=== PATIENT | male | born 1990 | race Two or more races ===

== ENCOUNTER 2017-07-11 10:58 | Emergency (ER) | payer SELFPAY ==
[~2017-07-11] VITALS: Ht 182.9 cm; Wt 115.2 kg
[2017-07-11 11:59] LABS: Basophils # (auto) 0 uL; Basophils % (auto) 0.4 % (0.0-2.0); Eosinophils # (auto) 0.1 uL; Eosinophils % (auto) 2.1 % (0.0-7.0); Hematocrit 48.1 % (41.0-53.0); Hemoglobin 15.6 g/dL (13.5-17.5); Lymphocytes # (auto) 3.1 uL; Lymphocytes % (auto) 44.3 % (10.0-50.0); Mean Corpuscular Hemoglobin 31.3 pg (28.0-32.0); Mean Corpuscular Hgb Conc. 32.4 g/dL (32.0-36.0); Mean Corpuscular Volume 96.6 fL (80.0-100.0); Monocytes # (auto) 0.5 uL; Monocytes % (auto) 7.7 % (0.0-12.0); Neutrophils # (auto) 3.2 uL; Neutrophils % (auto) 45.5 % (37.0-80.0); Nucleated Red Blood Cells % 0.2 %; Platelet Count (auto) 300 10^3/uL (140-450); Red Blood Cells 4.98 10^6/uL (4.5-5.90); Red Cell Distribution Width 13.9 % (11.8-14.3)
[2017-07-11 12:22] LABS: Alanine Aminotransferase 44 U/L (16-61); Albumin 3.8 g/dL (3.4-5.0); Alkaline Phosphatase 75 U/L (45-117); Anion Gap 6 (5-15); Aspartate Aminotransferase 17 U/L (15-37); BUN/Creatinine Ratio 14.9; Bilirubin, Total 0.4 mg/dL (0.2-1.0); Blood Urea Nitrogen 13 mg/dL (7-18); Calcium 8.6 mg/dL (8.5-10.1); Carbon Dioxide 27 mmol/L (21-32); Chloride 108 mmol/L (98-107); GFR African American 134 mL/min; GFR Non-African American 111 mL/min; Glucose 85 mg/dL (74-106); Sodium 141 mmol/L (136-145); Total Protein 7.2 g/dL (6.4-8.2)
[2017-07-11 14:21] LABS: Urine Amorphous Crystal FEW /hpf (None Seen); Urine Bacteria NONE SEEN /hpf (None Seen); Urine Blood Negative /uL (Negative); Urine Specific Gravity 1.024 (1.001-1.035); Urine WBC 1 /hpf (0 - 3)
[2017-07-11 14:27] VITALS: BP 125/83
[2017-07-11 14:31] LABS: Alcohol, Urine < 3.0 mg/dL (0-5); Amphetamine Screen, Urine NEGATIVE (NEGATIVE); Barbiturate Scree,Urine NEGATIVE (NEGATIVE); Benzodiazephine Screen, Urine NEGATIVE (NEGATIVE); Cannabinoid Screen, Urine POSITIVE (NEGATIVE); Cocaine Screen, Urine NEGATIVE (NEGATIVE); Opiate Scree,Urine NEGATIVE (NEGATIVE); Phencyclidine Screen, Urine NEGATIVE (NEGATIVE)
== END 2017-07-11 15:37 | disposition home or self-care (01) ==
LOC: ER 10:58
DX: M54.12 Radiculopathy, cervical region (principal); R07.89 Other chest pain; F12.90 Cannabis use, unspecified, uncomplicated
CPT/HCPCS: 36415; 71046; 72050; 73030; 80053; 80307; 81001; 84484; 85025; 93005